=== PATIENT | male | born 1955 | race Caucasian/White ===

== ENCOUNTER → 2021-06-22 10:14 | Outpatient (CLI) | payer MEDICARE, OTHER, SELFPAY ==
[2021-06-22 12:05] LABS: BUN Creatinine Ratio 12.3 (6-22); Blood Urea Nitrogen 19 mg/dL (9-20); Calcium 9.3 mg/dL (8.4-10.2); Carbon Dioxide 37 mmol/L (22-32); Chloride 95 mmol/L (98-107); Creatine Kinase 67 U/L (55-170); Estimated Glomerular Filt Rate 45.2 mL/min (>60); Glucose 104 mg/dL (80-110); HEMOLYSIS < 15 (0-50); Potassium 4.3 mmol/L (3.4-5.1); Sodium 139 mmol/L (137-145)
[2021-06-22 12:17] LABS: NT-proBNP (BNP-Adult 18+) 714 pg/mL (<125)
== END ==
PROVIDERS: PCP Internal Medicine; Referring Provider Internal Medicine Advanced Heart Failure and Transplant Cardiology; Visit Provider Internal Medicine Advanced Heart Failure and Transplant Cardiology
DX: I42.8 Other cardiomyopathies (principal)
CPT/HCPCS: 36415; 80048; 82550; 83880